=== PATIENT | female | born 1965 | race Caucasian/White ===

== ENCOUNTER 2020-08-24 22:05 | Emergency (ER) | payer OTHER ==
[~2020-08-24 22:05] MED LIST: ACETAMINOPHEN500 M1 PO; IBUPROFEN800 MG PO; TESSALON PERLE100 MG PO; VIBRAMYCIN100 MG PO
[2020-08-24 23:08] LABS: BILIRUBIN NEGATIVE (NEGATIVE); BLOOD TRACE-INTACT Ery/uL (NEGATIVE); CLARITY CLEAR (CLEAR); COLOR YELLOW (YELLOW); GLUCOSE (U) NORMAL (NORMAL); LEUKOCYTES NEGATIVE Leu/uL (NEGATIVE); NITRITE NEGATIVE (NEGATIVE); PROTEIN NEGATIVE (NEGATIVE); SPECIFIC GRAVITY >=1.030 (1.001-1.030); UROBILINOGEN 0.2 mg/dL (0.2-1.0)
[2020-08-24 23:18] LABS: AMPHETAMINES NEGATIVE (NEGATIVE); BACTERIA TRACE; BARBITURATES NEGATIVE (NEGATIVE); ECSTASY (MDMA) NEGATIVE (NEGATIVE); MARIJUANA (THC) NEGATIVE (NEGATIVE); METHADONE NEGATIVE (NEGATIVE); OPIATES NEGATIVE (NEGATIVE); OXYCODONE NEGATIVE (NEGATIVE); SQUAMOUS EPITHELIAL CELLS 20-50; URINARY WBC RARE
[2020-08-24 23:27] LABS: BASOPHIL 0.5 % (0-2); EOSINOPHIL 0.8 % (0-5); HCT 44.3 % (37.0-47.0); HGB 14.3 g/dl (12.5-16.0); LYMPHOCYTE 24.5 % (15-48); MCH 30.8 pg (25.0-31.0); MCHC 32.3 g/dL (32.0-36.0); MCV 95.5 fL (78.0-100.0); MONOCYTE 6.1 % (0-12); MPV 10.5 fL (6.0-9.5); NEUTROPHIL 67.7 % (41-80); NRBC 0; PLT 232 K/uL (150-400); RBC 4.64 M/uL (4.20-5.40); RDW 12.8 % (11.5-14.0); WBC 10.8 K/uL (4.0-10.5)
[2020-08-24 23:32] LABS: BILIRUBIN - TOTAL 1.2 mg/dL (0.2-1.0); BUN/CREAT RATIO (CALC) 20.5 RATIO; CREATININE 0.83 mg/dL (0.51-0.95); GLOBULIN (CALCULATION) 3.3 g/dL; MAGNESIUM 2.1 mg/dL (1.8-2.4); PHOSPHORUS 3.9 mg/dL (2.6-4.7); POTASSIUM 4.1 mmol/L (3.5-5.1); TOTAL PROTEIN 7.3 g/dL (6.4-8.2)
[2020-08-25 01:56] LABS: FT4 (FREE T4) 1.2 ng/dL (0.76-1.46)
== END 2020-08-25 01:55 | disposition home or self-care (01) ==
LOC: FER 22:05
PROVIDERS: Emergency Medicine Emergency Medical Services
DX: R42 Dizziness and giddiness (principal); R25.1 Tremor, unspecified; E11.9 Type 2 diabetes mellitus without complications; I10 Essential (primary) hypertension; F17.210 Nicotine dependence, cigarettes, uncomplicated; Z86.73 Personal history of transient ischemic attack (TIA), and cerebral infarction without residual deficits
CPT/HCPCS: 36415; 70450; 71045; 80053; 80305; 81001; 83690; 83735; 84100; 84439; 84443; 84484; 85025; 93005; J7120